=== PATIENT | male | born 2000 | race Two or more races ===

== ENCOUNTER 2025-06-03 11:36 | Emergency (ER) | payer BC, SELFPAY ==
[~2025-06-03 11:36] MED LIST: Iopamidol 300 61% 100 ML VIAL FS ONE
[2025-06-03 13:28] LABS: #Basophils 0.04 10x3/uL (0.0-0.2); #Eosinophils 0.07 10x3/uL (0.0-0.5); #Monocytes 0.37 10x3/uL (0.0-1.1); #Neutrophils 3.25 10x3/uL (1.5-8.4); %Basophils 0.7 % (0.0-2.0); %Eosinophils 1.2 % (0.0-6.0); %Lymphocytes 36.9 % (18.0-47.0); %Monocytes 6.2 % (0.0-10.0); %Neutrophils 54.7 % (40.0-75.0); Hematocrit 40.1 % (38.8-50.0); Hemoglobin 13.2 g/dL (13.5-17.5); Mean Corpuscular Hemoglobin 27.4 pg (27.0-33.0); Mean Corpuscular Volume 83.4 fL (81.2-95.1); Platelet Count 253 10x3/uL (150-450); Red Blood Cell (RBC) Count 4.81 10x6/uL (4.32-5.72); White Blood Cell (WBC) Count 5.94 10x3/uL (3.5-10.5)
[2025-06-03 13:29] LABS: Glucose, Urine (Dipstick) Normal (Negative); Leukocyte Negative (Negative); Protein, Urine (Dipstick) 15 mg/dl (Neg-Trace); Specific Gravity, Urine 1.015 (1.005-1.030)
[2025-06-03 13:42] LABS: ALT (SGPT) 27 U/L (Less than 45); AST (SGOT) 19 U/L (11-34); Albumin 4.9 g/dL (3.1-4.5); Alkaline Phosphatase 72 U/L (40-110); Anion Gap 14 mmol/L (10-20); BUN (Urea Nitrogen) 10 mg/dL (8.9-20.6); Bilirubin, Total 0.4 mg/dL (0.3-1.2); Calc. Creatinine Clearance 0 mL/min (70-130); Calcium 9.9 mg/dL (7.8-10.44); Carbon Dioxide 24 mmol/L (22-29); Chloride 105 mmol/L (98-107); Globulin 3.2 g/dL (2.4-3.5); Glucose 108 mg/dL (70-105); Potassium 4.0 mmol/L (3.5-5.1); Sodium 139 mmol/L (136-145)
[2025-06-03 13:44] LABS: Bacteria/HPF 1+ HPF (None Seen); CAUTI Indications for Culture Pelvic or flank pain; RBC/HPF 0-3 HPF (0-3); WBC/HPF 0-3 HPF (0-3)
[2025-06-03 13:45] LABS: Urine Culture Reflex No No
[2025-06-04 00:15] LABS: Campy jejuni + coli by PCR Negative (Negative); STEC Shiga Toxin 1+2 Negative (Negative); Salmonella spp. by PCR Negative (Negative); Shigella spp + EIEC by PCR Negative (Negative)
== END 2025-06-03 16:00 | disposition home or self-care (01) ==
LOC: CSHERS 11:36
DX: K59.00 Constipation, unspecified (principal); E87.70 Fluid overload, unspecified; E10.9 Type 1 diabetes mellitus without complications; F17.290 Nicotine dependence, other tobacco product, uncomplicated; F17.210 Nicotine dependence, cigarettes, uncomplicated; Z79.4 Long term (current) use of insulin
CPT/HCPCS: 36416; 74177; 80053; 81001; 83690; 85025; 86140; 87177; 87209; 87505; 93005; Q9967